=== PATIENT | male | born 1950 | race Caucasian/White ===

== ENCOUNTER 2022-04-08 15:50 | Emergency (ER) | payer MEDICARE, OTHER, SELFPAY ==
[2022-04-08 15:55] VITALS: BP 166/77; PULSE 60; RESP 18; TEMP 36.8; O2SAT 98
--- NOTE | 2022-04-08 16:45 | DI.CT_ITS ---
Exam(s) CT ABDOMEN PELVIS WO EXAM: CT ABDOMEN PELVIS WO CLINICAL HISTORY: Right side abd pain. TECHNIQUE: Imaging Protocol: Axial computed tomography images with coronal and sagittal reformatted images were created and reviewed CONTRAST MATERIAL: Intravenous: none Oral: None COMPARISON: No exams were available for comparison FINDINGS: VISUALIZED LUNG BASES: No nodules nor pleural effusions evident. Sternotomy wires noted. No pericar dial effusion. Heart size normal. ABDOMEN: There is no ascites. LIVER: There are no obvious focal hepatic lesions evident of this noninfused study. GALLBLADDER/BILIARY: Gallbladder is surgically absent. CBD is not dilated. PANCREAS: No evidence of pancreatic mass nor dilatation of the pancreatic duct. SPLEEN: Spleen size upper normal. Benign splenule noted adjacent to the pancreatic tail. ADRENALS: There are no significant adrenal masses. KIDNEYS:2 cysts in the left kidney. The larger cyst in the left kidney measures 4.5 x 3.7 cm. No so lid renal masses. No calculi in left kidney nor hydronephrosis nor dilatation left ureter. On the opposite-right side there are small benign cyst in the right kidney. No calculi but there is perinephric streaking and mild hydronephrosis and hydroureter. The right ureter exhibits diameter 5- 6 millimeters throughout its course including at the ureterovesical junction. There is no radiopaque calculus at this level nor in the nondistended urinary bladder. No obvious mass in the urinary blad jose. Prostate mildly enlarged, measuring 4.3 cm wide by 3.7 cm AP.. ABDOMINAL AORTA: Atherosclerotic distally with minimal fusiform dilatation just below the inferior me senteric artery but maximum diameter is 2.3 cm. There is no significant dilatation of the iliac vess els. LYMPH NODES: There is no retroperitoneal nor paraaortic adenopathy. ABDOMINAL WALL: No evidence of significant anterior abdominal wall nor inguinal hernia. GI: There is no evidence of bowel obstruction, free air, nor abscess. PELVIS: LYMPH NODES: There is no intrapelvic nor inguinal adenopathy. GI: No evidence of appendicitis.There is sigmoid diverticuli but no obvious diverticulitis. URINARY BLADDER: Unremarkable. REPRODUCTIVE: Mildly enlarged prostate with measurements as above. Seminal vesicles unremarkable. OSSEOUS: No significant osseous lesions. SI joints unremarkable. IMPRESSION: 1. Main finding here is mild dilatation of the entire right renal collecting system without evidence of radiopaque calculus. There is also mild unilateral right-sided perinephric stranding. These find ings may be related to a recently passed calculus (there is no radiopaque calculus in the nondistende d urinary bladder), a noncalcified calculus at ureterovesical junction, clot or soft tissue mass in t he distal right ureter or urinary bladder. Close follow-up recommended include urology consultation for possible cystoscopy/retrograde imaging.. 2. Opposite-left kidney contains 2 benign cysts but otherwise unremarkable and no left-sided hydronep hrosis. 3. Gallbladder surgically absent. The biliary tree is not dilated. RADIATION DOSE DELIVERED: 858.82mGy.cm Total DLP DATA REPOSITORY: All CT scans at this facility are submitted to the National Radiology Data Registry (NRDR) Dose Index Registry (DIR) with the [employer] (ACR). RADIATION OPTIMIZATION: All CT scans at this facility use at least one of these dose optimization te chniques: automated exposure control; mA and/or kV adjustment per patient size (includes targeted exa ms where dose is matched to clinical indication); or iterative reconstruction.
--- NOTE | 2022-04-08 16:50 | W.ED.GENAD ---
Discharge Plan Disposition Patient Disposition: HOME Condition: Improving Discharge Details Clinical Impression: Abdominal pain, Decreased urine output Primary Care Provider: Unknown,Unknown ED Provider: Debo Carr Discharge Instructions Instructions: Abdominal Pain (ED) Additional Instructions: At this time CT shows a dilated right ureter which may indicate a recently passed stone. No retained kidney stone at this time. Your potassium was slightly high here at 5.3, your BUN is 40 creatinine 2.5 and your GFR is 26.47. Please discuss these levels with your pattern perforating machine operator. Follow up with primary care provider in 3-5 days. Return to ED sooner if any worsening or concerns. Increase oral fluids. Please take Tylenol with food every 4-6 hours as needed for pain and swelling. Medical Decision Making 71-year-old male presents to the ER with chief complaint of right-sided abdominal pain which began this morning. He reports he has been unable to urinate this morning. He does state his only had about half bottle of water since this morning. He denies any nausea vomiting. He has had normal bowel movements. He does have a past medical history of kidney stones. He is tender with palpation. Denies any abdominal surgeries. CT abdomen pelvis without contrast ordered, Labs urinalysis. Bladder scan ordered and was performed by staff cytotechnologist with over 100 cc. I did discuss catheter possibly with patient who verbalized understanding. Labs had to be redrawn due to hemolysis. CBC shows hemoglobin 12.3 hematocrit 37.5, RBC 3.57, CMP shows sodium 142 potassium 5.3 BUN 40 creatinine 2.5 GFR 26.47, alk phos 126, urinalysis shows 30 protein small blood. 2015: Patient reevaluation he reports feeling much better after that second medication. I did discuss his lab results with him which he reports he does have a history of kidney failure and sees a pattern perforating machine operator at [facility] where he gets the majority of his care. He last saw them 2 weeks ago and his renal function tests were stable at that time. He was able to urinate here approximately 200 mils per patient report. I did discuss his CT results with him he verbalized understanding. We will try to get a repeat BMP to determine accuracy and attempt to get records from [facility] to compare his kidney functions with test. 2038: Patient incontinent of urine. Patient reevaluation he reports that his pain has largely improved. I did discuss that I would try to obtain the medical records from [place] however we were unable to get those records. I did discuss his lab results and instructed him to follow-up with his pattern perforating machine operator he verbalized understanding. He is hemodynamically stable upon discharge and feels much better. Discuss strict return instructions and home care. He is discharged into the care of his significant other. This text was generated using [employer] system, please disregard any oddities of phrase or misspellings. Medical Records Medical records reviewed: Yes I reviewed the patient's medical records. Imaging Data Radiologic Study: Imaging: CT Scan Radiologist's impression: FINDINGS: Liver: Normal. No mass. Gallbladder and bile ducts: Cholecystectomy Pancreas: Normal. No ductal dilation. Spleen: Normal. No splenomegaly. Adrenal glands: Normal. No mass. Kidneys and ureters: There is no evidence of renal or ureteral calcifications. Multiple bilateral renal cysts. Dilatation of the right ureter but no ureteral calculus. There is also mild perirenal stranding.. Stomach and bowel: Unremarkable. No obstruction. No mucosal thickening. Diverticulosis of the rectosigmoid. No lianne diverticulitis Appendix: Normal appendix Intraperitoneal space: Unremarkable. No free air. No significant fluid collection. Vasculature: Unremarkable. No abdominal aortic aneurysm. Lymph nodes: Unremarkable. No enlarged lymph nodes. Urinary bladder: Unremarkable as visualized. Reproductive: Unremarkable as visualized. Bones/joints: Median sternotomy Soft tissues: Unremarkable. IMPRESSION: Dilatation of the right ureter but no ureteral calculus. There is also mild perirenal stranding. The findings could be due to a recently passed stone, a noncalcified stone or clot or soft tissue process in the right ureter, or an infectious/inflammatory process of the right collecting system. . Thank you for allowing us to participate in the care of your patient. Lab Data Lab results reviewed: Yes I reviewed the patient's lab results. Labs: Laboratory Tests Range/Units 04/08/22 04/08/22 04/08/22 17:25 17:25 19:28 WBC Cancelled 7.42 RBC Cancelled 3.57 L Hgb Cancelled 12.3 L Hct Cancelled 37.5 L MCV Cancelled 105 H MCH Cancelled 34.5 H MCHC Cancelled 32.8 RDW Cancelled 13.3 Plt Count Cancelled 145 MPV Cancelled 10.4 Immature Gran % Cancelled 0.4 Neutrophils % Cancelled 71.4 Band Neutrophils % Cancelled Lymphocytes % Cancelled 16.3 Atypical Lymphs % Cancelled Monocytes % Cancelled 8.5 Eosinophils % Cancelled 3.0 Basophils % Cancelled 0.4 Metamyelocytes % Cancelled Myelocytes % Cancelled Promyelocytes % Cancelled Other Cells % Cancelled Nucleated RBC % Cancelled 0.0 Absolute Neutrophils Cancelled 5.30 Absolute Lymphocytes Cancelled 1.21 Absolute Monocytes Cancelled 0.63 Absolute Eosinophils Cancelled 0.22 Absolute Basophils Cancelled 0.03 RBC Morphology Cancelled Polychromasia Cancelled Hypochromasia Cancelled Poikilocytosis Cancelled Basophilic Stippling Cancelled Anisocytosis Cancelled Microcytosis Cancelled Macrocytosis Cancelled Spherocytes Cancelled Tear Drop Cells Cancelled Ovalocytes Cancelled Stomatocytes Cancelled [place] Bodies Cancelled Brandi Cells/Echinocytes Cancelled Acanthocytes (Spur) Cancelled Schistocytes Cancelled Sodium Cancelled Potassium Cancelled Chloride Cancelled Carbon Dioxide Cancelled Anion Gap Cancelled BUN Cancelled Creatinine Cancelled Est GFR (CKD-EPI 2020) Cancelled Glucose Cancelled Calcium Cancelled Total Bilirubin Cancelled AST Cancelled ALT Cancelled Alkaline Phosphatase Cancelled Total Protein Cancelled Albumin Cancelled Urine Color (Yellow) Urine Clarity (Clear) Urine pH (5-8) Ur Specific [place] (1.005-1.025) Urine Protein (Negative) mg/dL Urine Ketones (Negative) mg/dL Urine Blood (Negative) Urine Nitrite (Negative) Urine Bilirubin (Negative) Urine Urobilinogen (Up TO 0.2) EU/dL Ur Leukocyte Esterase (Negative) Urine Glucose (Negative) mg/dL Range/Units 04/08/22 19:36 WBC RBC Hgb Hct MCV MCH MCHC RDW Plt Count MPV Immature Gran % Neutrophils % Band Neutrophils % Lymphocytes % Atypical Lymphs % Monocytes % Eosinophils % Basophils % Metamyelocytes % Myelocytes % Promyelocytes % Other Cells % Nucleated RBC % Absolute Neutrophils Absolute Lymphocytes Absolute Monocytes Absolute Eosinophils Absolute Basophils RBC Morphology Polychromasia Hypochromasia Poikilocytosis Basophilic Stippling Anisocytosis Microcytosis Macrocytosis Spherocytes Tear Drop Cells Ovalocytes Stomatocytes [place] Bodies Brandi Cells/Echinocytes Acanthocytes (Spur) Schistocytes Sodium Potassium Chloride Carbon Dioxide Anion Gap BUN Creatinine Est GFR (CKD-EPI 2020) Glucose Calcium Total Bilirubin AST ALT Alkaline Phosphatase Total Protein Albumin Urine Color (Yellow) Yellow Urine Clarity (Clear) Clear Urine pH (5-8) 6.0 Ur Specific [place] (1.005-1.025) 1.020 Urine Protein (Negative) mg/dL 30 H Urine Ketones (Negative) mg/dL Negative Urine Blood (Negative) Small H Urine Nitrite (Negative) Negative Urine Bilirubin (Negative) Negative Urine Urobilinogen (Up TO 0.2) EU/dL 0.2 Ur Leukocyte Esterase (Negative) Negative Urine Glucose (Negative) mg/dL Negative HPI General Mode of arrival: wheelchair. Date/Time Provider Initiated Documentation: 04/08/22 16:22. Limitations to Documentation: no limitations. Information obtained by: patient. HPI Narrative: 71-year-old male presents to the ER with chief complaint of right-sided abdominal pain which began this morning. He reports he has been unable to urinate this morning. He does state his only had about half bottle of water since this morning. He denies any nausea vomiting. He has had normal bowel movements. He does have a past medical history of kidney stones. He is tender with palpation. Denies any abdominal surgeries. Related Data Allergies Allergy/AdvReac Type Severity Reaction Status Date / Time hydromorphone [From Dilaudid] AdvReac Intermediate Other (See Unverified 04/08/22 15:59 Comment) General Stated Complaint: Urinary TEODORA: 3 PFSH All Active Problems (Updated 04/08/22 @ 21:21 by Debo Carr NP) Abdominal pain (Acute) Decreased urine output (Acute) Kidney disease (Acute) Social History Smoking/Tobacco Use Status: Never Smoking risk assessment performed?: Yes Alcohol Intake: current Alcohol Intake frequency: holidays/special occasions only Alcohol type: beer Drug use: Never Substance use type: does not use Do you feel safe at home: Yes Do you feel safe in your relationship?: Yes Exam Narrative Exam Narrative: Constitutional: Alert and oriented x3. Appears stated age. Normal body habitus. Head: Normocephalic, no trauma. Eyes: Cloudy left eye, patient is blind both eyes. Chest: RRR, Normal S1, S2, distal pulses intact. Resp: Lungs clear to auscultation bilaterally, no wheezes, rales, or rhonchi. Abdomen: Tenderness with palpation to the right lower quadrant. Musculoskeletal: Normal gait, 5/5 strength to all four extremities. Skin: No suspicious rashes or lesions. Capillary refill less than 2 sec. Neurologic: Cranial nerves II-XII intact. Alert and oriented x 3. Motor: No deficits noted. Sensory: Intact bilaterally all 4 extremities. Reflexes: DTR's intact bilaterally.. Hematologic/Lymphatic: No ecchymosis, no lymphadenopathy. Course Vital Signs Vital signs: Vital Signs Temperature 36.8 C 04/08/22 15:55 Pulse 60 04/08/22 15:55 Respiratory Rate 18 04/08/22 15:55 Blood Pressure 166/77 H 04/08/22 15:55 Pulse Oximetry 98 04/08/22 15:55 Temperature 36.8 C 04/08/22 15:55 Temperature Source Temporal Artery Scan 04/08/22 15:55 Pulse 60 04/08/22 15:55 Respiratory Rate 18 04/08/22 15:55 Respiratory Effort Non-Labored 04/08/22 15:57 Blood Pressure 166/77 H 04/08/22 15:55 Blood Pressure Position Sitting 04/08/22 15:55 Pulse Oximetry 98 04/08/22 15:55 Oxygen Delivery Method Room Air 04/08/22 15:55 Oxygen Flow Rate 0 04/08/22 15:55 Pain Level 9 04/08/22 15:55 PAWSS Have you Been Recently Intoxicated or Drunk Within the Last 30 days?: No Have you Ever Experienced Previous Episodes of Alcohol Withdrawal?: No Have you ever Experienced Withdrawal Seizures?: No Have you ever Experienced Delirium Tremens(DT)s?: No Have you ever undergone Alcohol Rehabilitation Treatment (i.e, inpt ot outpatient treatment programs)?: No Have you ever Experienced Blackouts?: No Have you ever Combined Alcohol with other Downers within the last 90 days?: No Have you ever Combined Alcohol with any other Substance of Abuse during the last 90 days?: No Result: 0
[2022-04-08] MEDS: Normal Saline 1,000 ML 1000 ML IV (18:00)
[2022-04-08] MEDS: fentaNYL 100 MCG/2 ML VIAL 50 MCG IVP (18:06)
[2022-04-08 18:07] VITALS: BP 150/75; PULSE 58; RESP 18; O2SAT 94
[2022-04-08] MEDS: Ondansetron 4 MG/2 ML VIAL IVP (18:07)
--- NOTE | 2022-04-08 18:17 | DI.VRAD_ITS ---
PROCEDURE INFORMATION: Exam: CT Abdomen And Pelvis Without Contrast Exam date and time: 04/08/2022 5:47 PM Age: 71 years old Clinical indication: Condition or disease; Other: Right side abd pain TECHNIQUE: Imaging protocol: Computed tomography of the abdomen and pelvis without contrast. COMPARISON: No relevant prior studies available. FINDINGS: Liver: Normal. No mass. Gallbladder and bile ducts: Cholecystectomy Pancreas: Normal. No ductal dilation. Spleen: Normal. No splenomegaly. Adrenal glands: Normal. No mass. Kidneys and ureters: There is no evidence of renal or ureteral calcifications. Multiple bilateral renal cysts. Dilatation of the right ureter but no ureteral calculus. There is also mild perirenal stranding.. Stomach and bowel: Unremarkable. No obstruction. No mucosal thickening. Diverticulosis of the rectosigmoid. No lianne diverticulitis Appendix: Normal appendix Intraperitoneal space: Unremarkable. No free air. No significant fluid collection. Vasculature: Unremarkable. No abdominal aortic aneurysm. Lymph nodes: Unremarkable. No enlarged lymph nodes. Urinary bladder: Unremarkable as visualized. Reproductive: Unremarkable as visualized. Bones/joints: Median sternotomy Soft tissues: Unremarkable. IMPRESSION: Dilatation of the right ureter but no ureteral calculus. There is also mild perirenal stranding. The findings could be due to a recently passed stone, a noncalcified stone or clot or soft tissue process in the right ureter, or an infectious/inflammatory process of the right collecting system. . Dictated and Authenticated by: Danny Ortiz MD. Ordering:BOB Edmondson MD
[2022-04-08] MEDS: fentaNYL 100 MCG/2 ML VIAL 25 MCG IVP (19:08)
[2022-04-08 19:33] LABS: Abs Immature Grans 0.03 10^3/uL (0.0-0.06); Absolute Basophil Count 0.03 10^3/uL (0.0-0.2); Absolute Eosinophil Count 0.22 10^3/uL (0.0-0.7); Absolute Lymphocyte Count 1.21 10^3/uL (1.2-3.4); Absolute Monocyte Count 0.63 10^3/uL (0.1-0.8); Basophils % 0.4; HCT 37.5 % (40.0-50.0); HGB 12.3 g/dL (13.5-17.5); Immature Grans % 0.4; Lymphocytes % 16.3; MCH 34.5 pg (27.0-33.0); MCHC 32.8 % (32.0-36.0); MCV 105 fL (80-95); MPV 10.4 fL (8.0-11.0); Monocytes % 8.5; Neutrophils % 71.4; Platelet Count 145 10^3/uL (130-400); RBC 3.57 10^6/uL (4.36-5.78); RDW 13.3 % (11.8-14.1); RDW-SD 51.1 fL; WBC 7.42 10^3/uL (4.4-10.8)
[2022-04-08 19:48] LABS: Bilirubin Negative (Negative); Blood Small (Negative); Clarity Clear (Clear); Glucose Negative (Negative); Ketones Negative (Negative); Leukocyte Esterase Negative (Negative); Nitrite Negative (Negative); Urobilinogen 0.2 EU/dL (Up TO 0.2)
[2022-04-08 19:54] LABS: ALT 23 U/L (16-63); AST 21 U/L (15-37); Alkaline Phosphatase 126 U/L (46-116); Anion Gap 11.2 mmol/L (3-11); BUN 40 mg/dL (7-18); Bilirubin, Total 0.3 mg/dL (0.2-1.0); CO2 19.8 mmol/L (21.0-32.0); CREATININE 2.5 mg/dL (0.70-1.30); Calcium 8.9 mg/dL (8.5-10.1); Chloride 111 mmol/L (98-107); Estimated GFR 26.47 (mL/min/1.73m2); Glucose 88 mg/dL (74-106); Potassium 5.3 mmol/L (3.5-5.1); Sodium 142 mmol/L (136-145); Total Protein 7.2 g/dL (6.4-8.2)
[2022-04-08 19:58] LABS: Bacteria Negative HPF (Negative); C & S Indicated? No; Crystals Negative HPF (Negative); Epithelial Cells Negative HPF (Negative); Mucus Negative (Negative); RBC 0-2 HPF (0-2); WBC Negative HPF (0-5)
[2022-04-08 20:49] LABS: Anion Gap 10.4 mmol/L (3-11); BUN 40 mg/dL (7-18); CO2 22.6 mmol/L (21.0-32.0); CREATININE 2.5 mg/dL (0.70-1.30); Calcium 9.2 mg/dL (8.5-10.1); Chloride 111 mmol/L (98-107); Estimated GFR 26.47 (mL/min/1.73m2); Glucose 76 mg/dL (74-106); Potassium 5.5 mmol/L (3.5-5.1); Sodium 144 mmol/L (136-145)
== END 2022-04-08 23:06 | disposition home or self-care (01) ==
PROVIDERS: Emergency Provider Registered Nurse Emergency
DX: R10.9 Unspecified abdominal pain (principal); R39.12 Poor urinary stream; Z87.442 Personal history of urinary calculi
CPT/HCPCS: 80048; 80053; 74176; 81003; 81015; 85025; J2405; J3010